=== PATIENT | male | born 1970 | race Caucasian/White ===

== ENCOUNTER 2021-05-03 06:56 | Day surgery (SDC) | payer OTHER ==
[~2021-05-03] VITALS: Ht 162.6 cm; Wt 67.6 kg
[2021-05-03] VITALS (10 sets, daily range): BP systolic 91–116; BP diastolic 56–85; PULSE 46–66; TEMP 97.3
[~2021-05-03 06:56] MED LIST: AMBIEN 10MG10 MG PO; AMBIEN CR 12.12.5 MG PO; ASPIRIN 81M81 MG/TA2 PO; BRILINTA90 MG PO; LEVAQUIN 5500 MG/TA1 PO; LEXAPRO20 MG PO; LIPITOR 40MG TA40 MG PO; LOPRESSOR 225 MG/TAB PO; MELAT3MGTAB PO; MINIPRESS2 MG PO; REMERON 15M15 MG/TA1 PO; REQUIP 1MG T1 MG/TAB PO; ROBAXIN 50500 MG/TAB PO; TRANSZONE3 MG PO; ZYRTEC 10MG10 MG PO; ZYRTEC5 MG PO
[2021-05-03] MEDS ORDERED: LOPRESSOR 550 MG/TAB PO (07:30)
[2021-05-03] MEDS ORDERED: REQUIP XL8 MG PO (07:34)
[2021-05-03 07:35] LABS: MEAN CELL VOLUME 84 fl (80.0-100.0); MEAN CORPUSCULAR HEMOGLOBIN 28 pg (27.0-31.0); MEAN CORPUSCULAR HGB CONC 33 g/dl (33.0-37.0); MEAN PLATELET VOLUME 9.6 fl (7.4-10.4); PLATELET COUNT 187 K/mm3 (130-400); RED BLOOD COUNT 4.65 M/mm3 (4.20-5.60); REDCELL DISTRIBUTION WIDTH-CV 13.1 % (11.5-14.5)
[2021-05-03] MEDS ORDERED: PROZAC 10MG10 MG PO (07:36)
[2021-05-03] MEDS ORDERED: AMBIEN 10MG10 MG PO (07:36)
[2021-05-03] MEDS ORDERED: COGENTIN 1MG1 MG/TAB PO (07:38)
[2021-05-03] MEDS ORDERED: FLEXERIL 1010 MG/TAB PO (07:39)
[2021-05-03] MEDS ORDERED: PERIACTIN 4MG TA4 MG PO (07:39)
[2021-05-03 07:42] LABS: INR 1.1 (0.8-3.0); PROTHROMBIN TIME 12.5 SECONDS (9.7-12.8)
[2021-05-03 07:44] LABS: PARTIAL THROMBOPLASTIN TIME 33.9 SECONDS (26.0-37.0)
[2021-05-03 07:59] LABS: CALCIUM 8.6 mg/dL (8.4-10.2); CREATININE, serum 1.06 (0.66-1.25); POTASSIUM 3.6 mmol/L (3.4-5.0)
--- NOTE | 2021-05-03 09:16 | NUR ---
SEE MERGE DOCUMENTATION FOR MEDICATION ADMINISTRATION TIMES AND INTRA/POST PROCEDURE SEDATION ASSESSMENTS.
--- NOTE | 2021-05-03 10:09 | NUR ---
REport from David LOPEZ. Transferred by bed from Polymerization Kettle Operator. Right Tband with 12 cc air CD&I, Good pulses and cap refill < 3 secs noted. Dressing to left upper chest from Loop implantation CD&I. VSS. bedside
[2021-05-03] MEDS ORDERED: NORCO 325 MG-51 TAB PO ×2 (11:08)
[2021-05-03] MEDS ORDERED: CLEOCIN HCL300 MG PO (11:36)
--- NOTE | 2021-05-03 12:54 | NUR ---
12 cc air released from right Tband and dressing applied. INT discontinued intact.
--- NOTE | 2021-05-03 13:18 | NUR ---
Discharge instructions given to pt/spouse. Transferred to private car by naty
== END 2021-05-03 13:20 | disposition home or self-care (01) ==
LOC: COL.CAR 06:56
PROVIDERS: Internal Medicine Cardiovascular Disease
DX: I47.2 Ventricular tachycardia (principal); R07.89 Other chest pain; I25.10 Atherosclerotic heart disease of native coronary artery without angina pectoris; I25.2 Old myocardial infarction; I50.30 Unspecified diastolic (congestive) heart failure; F51.5 Nightmare disorder; G47.9 Sleep disorder, unspecified; F32.9 Major depressive disorder, single episode, unspecified; Z79.82 Long term (current) use of aspirin; Z79.02 Long term (current) use of antithrombotics/antiplatelets; Z95.818 Presence of other cardiac implants and grafts
CPT/HCPCS: C1764; J1200; J1644; J2250; J2930; J3010; Q9967

== ENCOUNTER → 2021-10-14 | Outpatient (CLI) | payer OTHER ==
[~2021-10-14] MED LIST changes: +CLEOCIN HCL300 MG PO; +COGENTIN 1MG1 MG/TAB PO; +FLEXERIL 1010 MG/TAB PO; +LOPRESSOR 550 MG/TAB PO; +NORCO 325 MG-51 TAB PO; +PERIACTIN 4MG TA4 MG PO; +PROZAC 10MG10 MG PO; +REQUIP XL8 MG PO
== END ==
LOC: COL.RAD 11:45
DX: M41.85 Other forms of scoliosis, thoracolumbar region (principal); M51.34 Other intervertebral disc degeneration, thoracic region; M50.30 Other cervical disc degeneration, unspecified cervical region; Q18.0 Sinus, fistula and cyst of branchial cleft; M48.8X2 Other specified spondylopathies, cervical region

== ENCOUNTER 2022-06-27 08:16 | Day surgery (SDC) | payer OTHER ==
[~2022-06-27] VITALS: Ht 162.6 cm; Wt 63.4 kg
[2022-06-27 09:04] VITALS: BP 112/83; PULSE 76; TEMP 97.2
[2022-06-27] MEDS ORDERED: PROZAC 20MG20 MG PO (09:15)
[2022-06-27] MEDS ORDERED: PROAMATINE10 MG PO (09:16)
[2022-06-27] MEDS ORDERED: REQUIP 0.5MG0.5 MG PO (09:17)
[2022-06-27] MEDS ORDERED: AMBIEN CR6.25 MG PO (09:18)
[2022-06-27] MEDS ORDERED: ZYRTEC 10MG10 MG PO (09:19)
[2022-06-27] MEDS ORDERED: MINIPRESS2 MG PO (09:19)
[2022-06-27] MEDS ORDERED: FLORINEF ACETA0.1 MG PO (09:20)
[2022-06-27] MEDS ORDERED: HALDOL 1MG T1 MG/TAB PO (09:34)
[2022-06-27 10:30] VITALS: BP 117/75; PULSE 77; TEMP 97.1
--- NOTE | 2022-06-27 10:38 | NUR ---
1030 - PT arrives from procedure and was settled by Kathia LOPEZ. 1035 - Verbal report obtained.
--- NOTE | 2022-06-27 10:43 | NUR ---
1040 - PT continues to be very drowsy, but oriented and requested snack/drink. PT denies pain/nausea. IV flushed and PIVF continue. Call brian within reach if needed and non-slip socks remain on. Visitor is present.
[2022-06-27 10:45] VITALS: BP 119/88; PULSE 63
--- NOTE | 2022-06-27 10:46 | NUR ---
1045 - VSS. PT has finished snack and is tolerating well. Call brian within reach if needed.
[2022-06-27 11:00] VITALS: BP 126/78; PULSE 67
[2022-06-27 11:15] VITALS: BP 122/86; PULSE 59
--- NOTE | 2022-06-27 11:19 | NUR ---
1100 - PT continues to be drowsy but oriented. VSS. PT is resting. Call brian within reach. PT states DR has spoken w/ PT. Will monitor per intervals. 1115 - VSS. PT A&Ox3 and is watching a show on his phone. PIVF continue. Call brian within reach.
[2022-06-27 11:30] VITALS: BP 117/81; PULSE 61
--- NOTE | 2022-06-27 11:40 | NUR ---
1130 - VSS. Monitors and IV discontinued. Catheter tip intact and pressure bandage applied. NO redness or swelling noted. DC instructions and educational material reviewed w/ PT who verbalized understanding and signed. Questions answered to PT satisfaction. PT then refused RN assistance changing into personal clothes, call brian remains within reach if needed and non-slip socks are on. Legs lowered and blankets removed.
--- NOTE | 2022-06-27 11:51 | NUR ---
1150 - PT dismissed from endo via wheelchair to the PT entrence and was transferred into the care of his , who is driving private car. PT has personal belongings and DC packet.
== END 2022-06-27 11:50 | disposition home or self-care (01) ==
LOC: SDCO 08:16
DX: Z12.11 Encounter for screening for malignant neoplasm of colon (principal); K64.0 First degree hemorrhoids; K62.89 Other specified diseases of anus and rectum
CPT/HCPCS: J2704; J7120

== ENCOUNTER 2023-09-24 11:57 | Observation (INO) | payer OTHER ==
[2023-09-24] VITALS (29 sets, daily range): BP systolic 91–131; BP diastolic 58–97; PULSE 62–74; TEMP 97.4–98; O2SAT 66–100
[~2023-09-24] VITALS: Ht 162.6 cm; Wt 75.2 kg
[~2023-09-24 11:57] MED LIST changes: +AMBIEN CR6.25 MG PO; +FLORINEF ACETA0.1 MG PO; +HALDOL 1MG T1 MG/TAB PO; +PROAMATINE10 MG PO; +REQUIP 0.5MG0.5 MG PO
--- NOTE | 2023-09-24 13:06 | NUR ---
Arrived to the unit via EMS. Alert and oriented and in no distress upon arrival; VS stable. Reports 2/10 chest pain. Pain is midsternal with some numbness noted to the left hand. Patient reports that the pain is sharp and worsens with coughing. Noted to have an intermittent dry cough. Call light left within reach. Hospitalist notified of arrival.
[2023-09-24] MEDS ORDERED: TYLENOL 500MG500 MG PO (13:24)
[2023-09-24] MEDS ORDERED: COGENTIN .0.5 MG/TAB PO (13:28)
[2023-09-24] MEDS ORDERED: PERIACTIN 4MG TA4 MG PO (13:31)
[2023-09-24] MEDS ORDERED: NEURONTIN300 MG/CAP PO (13:37)
[2023-09-24] MEDS ORDERED: IBU800 M1 PO (13:39)
[2023-09-24] MEDS ORDERED: ARTANE 2MG2 MG PO (13:42)
[2023-09-24] MEDS ORDERED: *Potassium Replacement Protocol MC SCH (13:45)
--- NOTE | 2023-09-24 13:58 | NUR ---
Dr. Shipley notified that echo would not be able to be done until tomorrow per Lachelle the outdoor emergency care technician.
[2023-09-24] MEDS ORDERED: methylPREDNISolone Sod Succ 125 MG/2 ML VIAL IV SCH (14:00)
[2023-09-24] MEDS ORDERED: 1/2 NS 1,000 ML IV SCH ×2 (14:00→17:00)
[2023-09-24] MEDS ORDERED: diphenhydrAMINE 50 MG/ML 1 ML VIAL IV SCH (14:00)
[2023-09-24] MEDS ORDERED: Nitroglycerin/D5W 250 ML IV SCH (14:00)
[2023-09-24] MEDS ORDERED: Pantoprazole 40 MG in NS 10 ML IV ONE (14:00)
[2023-09-24 14:20] LABS: HEMATOCRIT 40.6 % (42.0-52.0); HEMOGLOBIN 14.1 g/dl (13.5-18.0); MEAN CELL VOLUME 80 fl (80.0-100.0); MEAN CORPUSCULAR HEMOGLOBIN 28 pg (27-31); MEAN CORPUSCULAR HGB CONC 35 g/dl (33.0-37.0); MEAN PLATELET VOLUME 9.8 fl (7.4-10.4); PLATELET COUNT 200 K/mm3 (130-400); RED BLOOD COUNT 5.11 M/mm3 (4.20-5.60)
[2023-09-24 14:27] LABS: ANION GAP 9 mmol/L (7-16); BLOOD UREA NITROGEN 19 mg/dL (8-26); C-REACTIVE PROTEIN 0.44 mg/dL (0.00-0.50); CALCIUM 9.2 mg/dL (8.4-10.2); CARBON DIOXIDE 23 mmol/L (22-29); CHLORIDE 106 mmol/L (98-107); CREATININE, serum 0.86 mg/dL (0.72-1.25); GLUCOSE 84 mg/dL (70-99); POTASSIUM 3.9 mmol/L (3.5-4.5); SODIUM 138 mmol/L (136-145)
[2023-09-24 14:34] LABS: TROPONIN-I < 0.010 ng/mL (0.00-0.033)
--- NOTE | 2023-09-24 14:55 | NUR ---
Transported to laboratory director. Alert and oriented with stable VS during transfer.
[2023-09-24] MEDS ORDERED: Heparin 1,000 UNITS/ML 10 ML Multi-Dose VIAL IA SCH (15:26)
[2023-09-24] MEDS ORDERED: Nitroglycerin 100 MCG/ML (Cath Lab) 10 ML VIAL IA SCH (15:26)
[2023-09-24] MEDS ORDERED: Verapamil 2.5 MG/ML 2 ML VIAL IA SCH (15:27)
[2023-09-24] MEDS ORDERED: Heparin 1,000 UNITS/ML 10 ML Multi-Dose VIAL IV SCH (15:31)
[2023-09-24] MEDS ORDERED: fentaNYL 50 MCG/ML 2 ML VIAL IV SCH (15:33)
[2023-09-24] MEDS ORDERED: Midazolam 2 MG/2 ML VIAL IV SCH (15:34)
--- NOTE | 2023-09-24 15:54 | NUR ---
Returned from [employer]; Alert and oriented with stable VS. Right radial site; soft with no hematoma formation andn +2 radial pulse. Call light left within reach. Patient stable to go up to the medical floor per cardiolgoy and hospitalist. Transfered to medical floor via wheelchair at 1715 and transported by JOHN Perez.
--- NOTE | 2023-09-24 17:30 | NUR ---
PT ON THE FLOOR APPROX 1715, BELONGINGS WITH PT. PT ON THE FLOOR WITH 1/2 NS TO GRAVITY. PT DENIES PAIN OR DISCOMFORT AT THIS TIME. MED REC DONE. PT DENIES NEEDS AT THIS TIME. BED IN LOWEST POSITION, CALL LIGHT IN REACH.
--- NOTE | 2023-09-24 17:45 | NUR ---
1/2 NS STARTED AT 100 MLS/HR IN LEFT AC. 3MLS OF AIR RELEASED, NO BLEEDING NOTED. PT DENIES NEEDS
--- NOTE | 2023-09-24 17:50 | NUR ---
3 MLS OF AIR RELEASED FROM BAND, NO BLEEDING NOTED. REMAINING AIR REMOVED WITHOUT BLEEDING. BAND AID APPLIED TO SITE
--- NOTE | 2023-09-24 18:40 | NUR ---
PT LAYING IN BED EATING. FLUIDS RUNNING PER ORDER IN LEFT AC. PT DENIES NEEDS AT THIS TIME. BED IN LOWEST POSITION, CALL LIGHT IN REACH.
--- NOTE | 2023-09-24 18:56 | NUR ---
REPORT GIVEN TO JOHN KAMARA
--- NOTE | 2023-09-24 20:09 | NUR ---
PATIENT RESTING IN BED WITH TV ON WITH NO FAMILY PRESENT WITH NO ACUTE DISTRESS NOTED. PATIENT ON ROOM AIR. 1/2 NS INFUSING INTO LEFT AC WITH NO COMPLICATIONS NOTED. ASSESSMENT AND MEDICATION ADMINISTRATION COMPLETED AT THIS TIME. PATIENT TOELRATED WELL. PATIENT REQUESTED SNACK. SANDWICH TRAY AND PEPSI GIVEN. PATIENT DENIES ANY OTHER NEEDS AT THIS TIME. BED IN LOW POSITION WITH WHEELS LOCKED WITH RAILS UP X2 AND CALL LIGHT WITHIN REACH.
--- NOTE | 2023-09-24 22:30 | NUR ---
PATIENT REQUESTED NIGHT TIME MEDICATIONS. PATIENT VERBALIZED UNDERSTANDING THAT HOSPITALIST WOULD BE CALLED. LINDSEY DAVENPORT CALLED. NEW ORDERS RECIEVED. SEE EMAR.
[2023-09-24] MEDS ORDERED: Gabapentin 300 MG CAP PO SCH (22:32)
[2023-09-24] MEDS ORDERED: Atorvastatin 20 MG TAB PO SCH (22:32)
[2023-09-24] MEDS ORDERED: Mirtazapine 15 MG TAB PO SCH (22:32)
[2023-09-24] MEDS ORDERED: SUBS TO ZOLPIDEM PO PRN (22:45)
[2023-09-24] MEDS ORDERED: ZOLPIDEM 6.25 MG PO PRN (22:45)
[2023-09-24] MEDS ORDERED: Zolpidem 5 MG TAB PO PRN (22:45)
--- NOTE | 2023-09-24 23:03 | NUR ---
PATIENT RESTING IN BED WATCHING TV WITH NO ACUTE DISTRESS NOTED. PATIENT ON ROOM AIR. NIGHT TIME MEDICATIONS GIVEN PER NEW ORDERS. SEE EMAR. PATIENT TOLERATED WELL. ALL NEEDS MET. BED IN LOW POSITION WITH WHEELS LOCKED WITH RAILS UP X2 AND CALL LIGHT WITHIN REACH.
[2023-09-25 03:01] VITALS: BP 126/96; PULSE 90; TEMP 98.2
[2023-09-25 07:12] LABS: BASO % 0.2 % (0.0-2.0); GRAN # 12.2 K/mm3 (1.4-6.5); GRAN % 84.6 % (42.2-75.2); LYMPH % 7.2 % (20.0-51.0); MEAN CELL VOLUME 79 fl (80.0-100.0); MEAN CORPUSCULAR HEMOGLOBIN 28 pg (27-31); MEAN CORPUSCULAR HGB CONC 35 g/dl (33.0-37.0); MEAN PLATELET VOLUME 10.2 fl (7.4-10.4); MONO # 1.1 K/mm3 (0.1-0.6); MONO % 7.3 % (1.7-9.3); PLATELET COUNT 212 K/mm3 (130-400); RED BLOOD COUNT 4.66 M/mm3 (4.20-5.60); REDCELL DISTRIBUTION WIDTH-CV 13.1 % (11.5-14.5)
[2023-09-25 07:14] LABS: HEMATOCRIT 36.9 % (42.0-52.0)
[2023-09-25 07:32] VITALS: BP 115/78; PULSE 90; TEMP 98
[2023-09-25 07:36] LABS: ALBUMIN 3.5 gm/dL (3.5-5.0); CALCIUM 8.7 mg/dL (8.4-10.2); CREATININE, serum 0.85 mg/dL (0.72-1.25); MAGNESIUM 1.9 mg/dL (1.6-2.6); PHOSPHOROUS 3.2 mg/dL (2.3-4.7); POTASSIUM 3.8 mmol/L (3.5-4.5)
--- NOTE | 2023-09-25 08:02 | NUR ---
Patient asking about AM medications, not currently ordered - hospitalist notified, see orders.
--- NOTE | 2023-09-25 08:10 | NUR ---
Patient awake, alert and oriented. Right radial site clean/dry/intact, no s/s hematoma. Denies chest pain, dizziness, or nausea. States he is beginning to get a migraine. Bed in lowest position with call light within reach.
[2023-09-25] MEDS ORDERED: Potassium Bicarbonate/Citrate 20 MEQ Effervescent TAB PO ONE (08:15)
[2023-09-25] MEDS ORDERED: Ibuprofen 800 MG TAB PO PRN (08:15)
[2023-09-25] MEDS ORDERED: FLUoxetine 10 MG TAB PO SCH (09:54)
--- NOTE | 2023-09-25 10:03 | NUR ---
Initial visit; Patient thanked Telephone Instrument Supervisor for looking in on him and offering Spiritual Care. Patient states he is having testing done at this time so is waiting results so not a lot has changed since his arrival. Telephone Instrument Supervisor prays that results are in soon and 'Brodie' is better soon.
[2023-09-25 11:18] VITALS: BP 109/58; PULSE 81; TEMP 97.9
--- NOTE | 2023-09-25 11:59 | NUR ---
silver spray worker met with pt and , Jill [phone] at bedside. Pt reports he lives in [place] with his family. He goes to [facility] for PCP needs and obtains medications from [facility] with no difficulties. Pt uses no DME and is independent with ADLS. Pt does not have a DPOA-HC and declines one at this time. Discharge Plan: Home
--- NOTE | 2023-09-25 14:54 | NUR ---
Patient discharged to home, educated on discharge instructions and follow up appointments. Patient verbalized understanding. Assisted to car by nursing staff, all belongings sent home with patient.
== END 2023-09-25 14:57 | disposition home or self-care (01) ==
LOC: IMCU 11:57 → MEDICAL 13:36 → ICU 13:36 → MEDICAL 17:13
PROVIDERS: ADMIT Internal Medicine
DX: R07.89 Other chest pain (principal); I25.10 Atherosclerotic heart disease of native coronary artery without angina pectoris; I10 Essential (primary) hypertension; E78.5 Hyperlipidemia, unspecified; Z95.5 Presence of coronary angioplasty implant and graft; Z98.2 Presence of cerebrospinal fluid drainage device; Z79.899 Other long term (current) drug therapy
CPT/HCPCS: G0378; J1200; J1644; J2250; J2930; J3010